=== PATIENT | female | born 1950 | race Caucasian/White ===

== ENCOUNTER 2016-09-17 20:48 | Emergency (ER) | payer MEDICARE, OTHER ==
[~2016-09-17] VITALS: Ht 157.5 cm; Wt 69.1 kg
[2016-09-17 20:51] VITALS: TEMP 97.9
[2016-09-17 21:18] LABS: BASO % 0.3 % (0.0-2.0); EOS # 0.1 (0.0-0.7); EOS % 1.8 % (0-4.0); GRAN # 4.3 (1.4-6.5); GRAN % 60.5 % (42.2-75.2); LYMPH % 28.7 % (20.0-51.0); MEAN CELL VOLUME 80 fl (80.0-100.0); MEAN CORPUSCULAR HGB CONC 35 g/dl (33.0-37.0); MEAN PLATELET VOLUME 8.4 fl (7.4-10.4); MONO # 0.6 (0.1-0.6); MONO % 8.6 % (1.7-9.3); PLATELET COUNT 230 K/mm3 (130-400); RED BLOOD COUNT 4.24 M/mm3 (4.10-5.30); REDCELL DISTRIBUTION WIDTH-CV 13.7 % (11.5-14.5); WHITE BLOOD COUNT 7.1 K/mm3 (4.8-10.8)
[2016-09-17 21:22] LABS: PROTHROMBIN TIME 11.4 SECONDS (9.7-12.8)
[2016-09-17 21:25] LABS: ADJUSTED CALCIUM 9.1 mg/dL (8.4-10.2); ALANINE AMINOTRANSFERASE 36 U/L (9-52); ALBUMIN 4.4 gm/dL (3.5-5.0); ALKALINE PHOSPHATASE 89 U/L (50-136); ANION GAP 13 mmol/L (7-16); BILIRUBIN,TOTAL 0.6 mg/dL (0.0-1.0); BLOOD UREA NITROGEN 6 mg/dL (7-17); CALCIUM 9.4 mg/dL (8.4-10.2); CARBON DIOXIDE 25 mmol/L (22-30); CREATININE, serum 0.72 mg/dL (0.52-1.25); GLUCOSE 196 mg/dL (74-106); LIPASE 102 U/L (23-300); POTASSIUM 4.1 mmol/L (3.4-5.0); SODIUM 127 mmol/L (137-145); TOTAL PROTEIN 7.7 gm/dL (6.4-8.2)
[2016-09-17 21:27] LABS: HEMATOCRIT 33.9 % (37.0-47.0); HEMOGLOBIN 11.7 g/dl (12.5-16.0); MEAN CORPUSCULAR HEMOGLOBIN 28 pg (27.0-31.0)
[2016-09-17 21:30] LABS: CHLORIDE 89 mmol/L (98-107)
[2016-09-17 21:41] LABS: TROPONIN-I < 0.012 ng/mL (0.000-0.034)
[2016-09-17] MEDS ORDERED: JANUVIA 100MG100 MG PO (23:16)
[2016-09-17] MEDS ORDERED: GLUCOPHAGE1000 MG PO (23:16)
[2016-09-17] MEDS ORDERED: ATACAND32 MG PO (23:16)
[2016-09-17] MEDS ORDERED: VERELAN120 MG PO (23:17)
[2016-09-17] MEDS ORDERED: ASPIRIN 81M81 MG/TA2 PO (23:17)
[2016-09-17] MEDS ORDERED: SYNTHROID0.05 MG/TA PO (23:17)
[2016-09-17] MEDS ORDERED: ZANTAC 150MG T150 MG PO (23:20)
[2016-09-17] MEDS ORDERED: ZOCOR 20MG20 MG PO (23:20)
[2016-09-17] MEDS ORDERED: BUSPAR10 MG PO (23:21)
[2016-09-17] MEDS ORDERED: TEMOVATE0.05% TP (23:21)
[2016-09-17] MEDS ORDERED: CELEXA40 MG PO (23:21)
[2016-09-17] MEDS ORDERED: DESYREL 50MG50 MG PO (23:21)
[2016-09-17] MEDS ORDERED: VITAMIN D 1001000 IU PO (23:22)
[2016-09-17] MEDS ORDERED: VITAMIN B-1000 MCG/T PO (23:22)
[2016-09-17] MEDS ORDERED: VITAMIN C500 MG PO (23:22)
[2016-09-17] MEDS ORDERED: NATURAL IRON65 MG PO (23:22)
[2016-09-18 00:53] VITALS: BP 144/74; PULSE 81
== END 2016-09-18 00:54 | disposition home or self-care (01) ==
LOC: COL.ER 20:48
PROVIDERS: Emergency Medicine
DX: M79.602 Pain in left arm (principal); R20.2 Paresthesia of skin; I10 Essential (primary) hypertension; E11.9 Type 2 diabetes mellitus without complications; Z86.79 Personal history of other diseases of the circulatory system; E78.5 Hyperlipidemia, unspecified; Z79.84 Long term (current) use of oral hypoglycemic drugs

== ENCOUNTER → 2016-09-19 | Outpatient (CLI) | payer MEDICARE, OTHER ==
[~2016-09-19] MED LIST: ASPIRIN 81M81 MG/TA2 PO; ATACAND32 MG PO; BUSPAR10 MG PO; CELEXA40 MG PO; DESYREL 50MG50 MG PO; GLUCOPHAGE1000 MG PO; JANUVIA 100MG100 MG PO; NATURAL IRON65 MG PO; SYNTHROID0.05 MG/TA PO; TEMOVATE0.05% TP; VERELAN120 MG PO; VITAMIN B-1000 MCG/T PO; VITAMIN C500 MG PO; VITAMIN D 1001000 IU PO; ZANTAC 150MG T150 MG PO; ZOCOR 20MG20 MG PO
== END ==
LOC: BHSO 14:45
DX: F41.1 Generalized anxiety disorder (principal)

== ENCOUNTER → 2016-10-17 | Outpatient (CLI) | payer MEDICARE, OTHER | LOC: BHSO 09:57 | DX: F41.1 Generalized anxiety disorder (principal) ==

== ENCOUNTER → 2016-12-17 | Outpatient (CLI) | payer MEDICARE, OTHER | LOC: BHSO 12:49 | DX: F33.41 Major depressive disorder, recurrent, in partial remission (principal) ==

== ENCOUNTER → 2017-01-21 | Outpatient (CLI) | payer MEDICARE, OTHER | LOC: BHSO 13:17 | DX: F41.1 Generalized anxiety disorder (principal) ==

== ENCOUNTER → 2017-03-29 | Outpatient (CLI) | payer MEDICARE, OTHER | LOC: BHSO 12:53 | DX: F33.1 Major depressive disorder, recurrent, moderate (principal) ==

== ENCOUNTER → 2017-05-30 | Outpatient (CLI) | payer MEDICARE, OTHER | LOC: BHSO 10:37 | DX: F33.41 Major depressive disorder, recurrent, in partial remission (principal) ==

== ENCOUNTER → 2017-07-30 | Outpatient (CLI) | payer MEDICARE, OTHER | LOC: BHSO 14:27 | DX: F41.1 Generalized anxiety disorder (principal) ==

== ENCOUNTER → 2017-09-11 | Outpatient (CLI) | payer MEDICARE, OTHER | LOC: BHSO 14:14 | DX: F41.1 Generalized anxiety disorder (principal) | CPT/HCPCS: G0463 ==

== ENCOUNTER → 2017-11-11 | Outpatient (CLI) | payer MEDICARE, OTHER | LOC: BHSO 12:51 | DX: F33.41 Major depressive disorder, recurrent, in partial remission (principal) | CPT/HCPCS: G0463 ==

== ENCOUNTER → 2018-01-20 | Outpatient (CLI) | payer MEDICARE, OTHER | LOC: MC.RAD 13:51 | DX: Z12.31 Encounter for screening mammogram for malignant neoplasm of breast (principal); Z98.890 Other specified postprocedural states ==

== ENCOUNTER → 2018-02-11 | Outpatient (CLI) | payer MEDICARE, OTHER | LOC: SUN.DIA 14:15 | DX: E11.9 Type 2 diabetes mellitus without complications (principal); Z68.26 Body mass index [BMI] 26.0-26.9, adult; Z71.3 Dietary counseling and surveillance | CPT/HCPCS: G0108 ==

== ENCOUNTER → 2018-03-12 | Outpatient (CLI) | payer MEDICARE, OTHER | LOC: SUN.DIA 10:15 | DX: E11.9 Type 2 diabetes mellitus without complications (principal) ==

== ENCOUNTER → 2018-05-02 | Outpatient (CLI) | payer MEDICARE, OTHER | LOC: BHSO 08:08 | DX: F41.1 Generalized anxiety disorder (principal) | CPT/HCPCS: G0463 ==

== ENCOUNTER → 2018-06-19 | Outpatient (CLI) | payer MEDICARE, OTHER | LOC: BHSO 14:20 | DX: F41.1 Generalized anxiety disorder (principal) | CPT/HCPCS: G0463 ==

== ENCOUNTER → 2018-09-25 | Outpatient (CLI) | payer MEDICARE, OTHER | LOC: BHSO 14:09 | DX: F41.1 Generalized anxiety disorder (principal) | CPT/HCPCS: G0463 ==

== ENCOUNTER → 2019-01-02 | Outpatient (CLI) | payer MEDICARE, OTHER | LOC: BHSO 14:35 | DX: F41.1 Generalized anxiety disorder (principal) | CPT/HCPCS: G0463 ==

== ENCOUNTER → 2019-03-06 | Outpatient (CLI) | payer MEDICARE, OTHER | LOC: BHSO 13:00 | DX: F41.1 Generalized anxiety disorder (principal) | CPT/HCPCS: G0463 ==

== ENCOUNTER → 2019-03-13 | Outpatient (CLI) | payer MEDICARE, OTHER | LOC: MC.RAD 13:30 | DX: Z12.31 Encounter for screening mammogram for malignant neoplasm of breast (principal); Z98.82 Breast implant status ==

== ENCOUNTER → 2019-05-28 | Outpatient (CLI) | payer MEDICARE, OTHER | LOC: BHSO 13:42 | DX: F41.1 Generalized anxiety disorder (principal) | CPT/HCPCS: G0463 ==

== ENCOUNTER → 2019-12-24 | Outpatient (CLI) | payer MEDICARE, OTHER | LOC: BHSO 14:40 | DX: F33.41 Major depressive disorder, recurrent, in partial remission (principal) | CPT/HCPCS: G0463 ==

== ENCOUNTER → 2020-01-27 | Outpatient (CLI) | payer MEDICARE, OTHER | LOC: BHSO 13:38 | DX: F41.1 Generalized anxiety disorder (principal) | CPT/HCPCS: G0463 ==

== ENCOUNTER → 2020-04-27 | Outpatient (CLI) | payer MEDICARE, OTHER | LOC: BHSO 13:40 | DX: F41.1 Generalized anxiety disorder (principal) | CPT/HCPCS: G0463 ==